=== PATIENT | female | born 1980 | race Caucasian/White ===

== ENCOUNTER 2017-09-23 19:48 | Emergency (ER) | payer MEDICAID ==
[~2017-09-23] VITALS: Ht 152.4 cm; Wt 63.5 kg
[2017-09-23 19:51] VITALS: BP 127/76
[2017-09-23] MEDS ORDERED: IBUPROFEN 600 MG TABLET PO ONE ×2 (22:00→22:06)
== END 2017-09-23 22:13 | disposition home or self-care (01) ==
LOC: ER 19:50
DX: S86.811A Strain of other muscle(s) and tendon(s) at lower leg level, right leg, initial encounter (principal); X58.XXXA Exposure to other specified factors, initial encounter; Y93.B9 Activity, other involving muscle strengthening exercises; Y92.89 Other specified places as the place of occurrence of the external cause; Y99.8 Other external cause status
CPT/HCPCS: 29505; 73564; 99284; A4606; Z7610

== ENCOUNTER 2017-10-09 14:42 | Emergency (ER) | payer MEDICAID ==
[~2017-10-09] VITALS: Ht 160 cm; Wt 63.5 kg
[2017-10-09 14:47] VITALS: BP 131/82
== END 2017-10-09 15:29 | disposition home or self-care (01) ==
LOC: ER 14:44
DX: M25.561 Pain in right knee (principal); Z88.0 Allergy status to penicillin
CPT/HCPCS: A4606; Z7610

== ENCOUNTER 2019-05-23 16:55 | Emergency (ER) | payer MEDICAID ==
[~2019-05-23] VITALS: Ht 152.4 cm; Wt 63.5 kg
[2019-05-23 17:34] VITALS: BP 146/91
== END 2019-05-23 18:44 | disposition home or self-care (01) ==
LOC: ER 16:57
DX: J32.9 Chronic sinusitis, unspecified (principal); R51 Headache; Z88.0 Allergy status to penicillin; Z60.2 Problems related to living alone